=== PATIENT | male | born 1945 | race Caucasian/White ===

== ENCOUNTER 2022-08-01 11:46 | Outpatient (CLI) | payer MEDICARE | END 2022-08-01 11:47 | disposition home or self-care (01) | LOC: CSHULT 11:46 | PROVIDERS: ATTEND Internal Medicine Cardiovascular Disease | DX: I48.4 Atypical atrial flutter (principal); I51.9 Heart disease, unspecified; I51.7 Cardiomegaly; Z95.0 Presence of cardiac pacemaker; I34.0 Nonrheumatic mitral (valve) insufficiency | CPT/HCPCS: 93306 ==